=== PATIENT | male | born 1950 | race Caucasian/White ===

== ENCOUNTER 2017-04-16 05:57 | Day surgery (SDC) | payer OTHER ==
[~2017-04-16] VITALS: Ht 167.6 cm; Wt 65.9 kg
[~2017-04-16 05:57] MED LIST: ACETAMINOPHEN 325 MG TABLET PO PRN; ASPI-556 PO; CYCLOPENTOLATE HCL 2% 2 ML OPHTHALMIC SOLUTION OD SCH; DICLOFENAC SODIUM 0.1% 2.5 ML OPHTHALMIC SOLUTION OD SCH; DOCU100C34 PO; FOLI1TAB15 PO; IBUP-2070 PO; METO-558 PO; MOXIFLOXACIN HCL 0.5% 3 ML OPHTHALMIC SOLUTION OD SCH; MULT-1238 PO; OLAN5TAB2 PO; OLAN7.5T2 PO; OXYB5XL PO; PALI3 PO; PANT40TA25 PO; PHENYLEPHRINE HCL 2.5% 2 ML OPHTHALMIC SOLUTION OD SCH; RINGERS SOLUTION,LACTATED 500 ML IV ONE; TETRACAINE HCL/PF 0.5% 4 ML OPHTHALMIC SOLUTION OD SCH; TRAM50TA4 PO; VITAD400 PO
[2017-04-16] MEDS ORDERED: RINGERS SOLUTION,LACTATED 500 ML IV ONE ×2 (06:00→06:06)
[2017-04-16] MEDS ORDERED: MOXIFLOXACIN HCL 0.5% 3 ML OPHTHALMIC SOLUTION ONE (06:07)
[2017-04-16] MEDS ORDERED: DICLOFENAC SODIUM 0.1% 2.5 ML OPHTHALMIC SOLUTION ONE (06:07)
[2017-04-16] MEDS ORDERED: PHENYLEPHRINE HCL 2.5% 2 ML OPHTHALMIC SOLUTION ONE (06:08)
[2017-04-16] MEDS ORDERED: TETRACAINE HCL/PF 0.5% 4 ML OPHTHALMIC SOLUTION ONE (06:08)
[2017-04-16] MEDS ORDERED: CYCLOPENTOLATE HCL 2% 2 ML OPHTHALMIC SOLUTION ONE (06:08)
[2017-04-16] MEDS: CYCLOPENTOLATE HCL 2% 2 ML OPHTHALMIC SOLUTION OD SCH ×3 (06:51→07:03)
[2017-04-16] MEDS: TETRACAINE HCL/PF 0.5% 4 ML OPHTHALMIC SOLUTION OD SCH ×3 (06:52→07:02)
[2017-04-16] MEDS: PHENYLEPHRINE HCL 2.5% 2 ML OPHTHALMIC SOLUTION OD SCH ×3 (06:52→07:03)
[2017-04-16] MEDS: DICLOFENAC SODIUM 0.1% 2.5 ML OPHTHALMIC SOLUTION OD SCH ×3 (06:52→07:03)
[2017-04-16] MEDS: MOXIFLOXACIN HCL 0.5% 3 ML OPHTHALMIC SOLUTION OD SCH ×3 (06:52→07:03)
[2017-04-16] MEDS ORDERED: ACETAMINOPHEN 325 MG TABLET PO PRN (08:00)
[2017-04-16] MEDS ORDERED: MIDAZOLAM HCL 2 MG/2 ML VIAL IVP ONE (12:00)
[2017-04-16] MEDS ORDERED: FentaNYL CITRATE-PF 100 MCG/2 ML VIAL IVP ONE (12:00)
[2017-04-16] MEDS ORDERED: EPINEPHrine 1:1,000 [1 MG/ML] AMP ONE (15:58)
[2017-04-16] MEDS ORDERED: HYALURONATE SODIUM 12 MG/ML 0.8 ML SYRINGE IO ONE (15:58)
[2017-04-16] MEDS ORDERED: POVIDONE-IODINE 10% 15 ML SOLUTION UD ONE (15:58)
[2017-04-16] MEDS ORDERED: HYALURONATE SOD/CHONDROITIN SOD 0.5 ML VIAL IO ONE (15:58)
== END 2017-04-16 09:15 | disposition home or self-care (01) ==
LOC: SURGERY 05:57
PROVIDERS: ATTEND Ophthalmology
DX: H25.11 Age-related nuclear cataract, right eye (principal); H40.9 Unspecified glaucoma; J45.909 Unspecified asthma, uncomplicated; G35 Multiple sclerosis; F20.0 Paranoid schizophrenia; F32.9 Major depressive disorder, single episode, unspecified; Z72.89 Other problems related to lifestyle; Z86.73 Personal history of transient ischemic attack (TIA), and cerebral infarction without residual deficits
CPT/HCPCS: 66984; 93005; C1780; J2250; J3010; J7120; J0171; J3490

== ENCOUNTER 2017-10-08 06:02 | Day surgery (SDC) | payer OTHER ==
[~2017-10-08] VITALS: Ht 167.6 cm; Wt 65.9 kg
[~2017-10-08 06:02] MED LIST changes: -ACETAMINOPHEN 325 MG TABLET PO PRN; -CYCLOPENTOLATE HCL 2% 2 ML OPHTHALMIC SOLUTION OD SCH; -DICLOFENAC SODIUM 0.1% 2.5 ML OPHTHALMIC SOLUTION OD SCH; -MOXIFLOXACIN HCL 0.5% 3 ML OPHTHALMIC SOLUTION OD SCH; -PHENYLEPHRINE HCL 2.5% 2 ML OPHTHALMIC SOLUTION OD SCH; -RINGERS SOLUTION,LACTATED 500 ML IV ONE; -TETRACAINE HCL/PF 0.5% 4 ML OPHTHALMIC SOLUTION OD SCH
[2017-10-08] MEDS ORDERED: LIDOCAINE HCL/PF 1% 2 ML VIAL IM ONE (06:03)
[2017-10-08] MEDS ORDERED: NEOMYCIN/POLYMYXIN B/DEXAMETH 3.5 GM OPHTHALMIC OINTMENT OD ONE (06:03)
[2017-10-08] MEDS ORDERED: EPINEPHrine 1:1,000 [1 MG/ML] AMP IM ONE (06:03)
[2017-10-08] MEDS ORDERED: TETRACAINE HCL VISCOUS 0.5% 0.6 ML OPHTHALMIC SOLUTION OD ONE (06:03)
[2017-10-08] MEDS ORDERED: POVIDONE-IODINE 10% 15 ML SOLUTION UD TP ONE (06:03)
[2017-10-08] MEDS ORDERED: HYALURONATE SOD/CHONDROITIN SOD 0.5 ML VIAL IO ONE (06:03)
[2017-10-08] MEDS ORDERED: MIDAZOLAM HCL 2 MG/2 ML VIAL IVP ONE (06:03)
[2017-10-08] MEDS ORDERED: FentaNYL CITRATE-PF 100 MCG/2 ML VIAL IVP ONE (06:03)
[2017-10-08] MEDS ORDERED: RINGERS SOLUTION,LACTATED 500 ML IV ONE ×2 (06:13→06:30)
[2017-10-08] MEDS ORDERED: PHENYLEPHRINE HCL 2.5% 2 ML OPHTHALMIC SOLUTION ONE (06:14)
[2017-10-08] MEDS ORDERED: TETRACAINE HCL/PF 0.5% 4 ML OPHTHALMIC SOLUTION ONE (06:14)
[2017-10-08] MEDS ORDERED: CYCLOPENTOLATE HCL 2% 2 ML OPHTHALMIC SOLUTION ONE (06:14)
[2017-10-08] MEDS ORDERED: MOXIFLOXACIN HCL 0.5% 3 ML OPHTHALMIC SOLUTION ONE (06:14)
[2017-10-08] MEDS ORDERED: ACETAMINOPHEN 325 MG TABLET PO PRN (06:30)
[2017-10-08] MEDS ORDERED: FLURBIPROFEN SODIUM 0.03% 2.5 ML OPHTHALMIC SOLUTION OS SCH (06:30)
[2017-10-08] MEDS ORDERED: DICLOFENAC SODIUM 0.1% 2.5 ML OPHTHALMIC SOLUTION OS SCH (06:30)
[2017-10-08] MEDS ORDERED: FLURBIPROFEN SODIUM 0.03% 2.5 ML OPHTHALMIC SOLUTION ONE (06:47)
[2017-10-08 06:57] LABS: GLUCOMETER DEV NAME(LOC) SDS 5; GLUCOSE,POINT OF CARE 103 MG/DL (70-110)
[2017-10-08] MEDS: MOXIFLOXACIN HCL 0.5% 3 ML OPHTHALMIC SOLUTION OS SCH ×3 (06:58→07:13)
[2017-10-08] MEDS: FLURBIPROFEN SODIUM 0.03% 2.5 ML OPHTHALMIC SOLUTION OS SCH ×3 (06:58→07:12)
[2017-10-08] MEDS: CYCLOPENTOLATE HCL 2% 2 ML OPHTHALMIC SOLUTION OS SCH ×3 (06:58→07:13)
[2017-10-08] MEDS: PHENYLEPHRINE HCL 2.5% 2 ML OPHTHALMIC SOLUTION OS SCH ×3 (06:58→07:13)
[2017-10-08] MEDS: TETRACAINE HCL/PF 0.5% 4 ML OPHTHALMIC SOLUTION OS SCH ×3 (06:58→07:12)
== END 2017-10-08 08:40 | disposition home or self-care (01) ==
LOC: SURGERY 06:02
PROVIDERS: ATTEND Ophthalmology
DX: H25.12 Age-related nuclear cataract, left eye (principal); J45.909 Unspecified asthma, uncomplicated; E66.9 Obesity, unspecified; G47.33 Obstructive sleep apnea (adult) (pediatric); I10 Essential (primary) hypertension; K21.9 Gastro-esophageal reflux disease without esophagitis; N40.0 Benign prostatic hyperplasia without lower urinary tract symptoms; F20.0 Paranoid schizophrenia; Z87.891 Personal history of nicotine dependence; Z72.89 Other problems related to lifestyle; Z68.23 Body mass index [BMI] 23.0-23.9, adult; Z86.73 Personal history of transient ischemic attack (TIA), and cerebral infarction without residual deficits; Z79.82 Long term (current) use of aspirin; Z79.1 Long term (current) use of non-steroidal anti-inflammatories (NSAID); Z79.891 Long term (current) use of opiate analgesic; Z98.41 Cataract extraction status, right eye; Z79.899 Other long term (current) drug therapy
CPT/HCPCS: 66982; 82962; 93005; C1780; J0171; J2250; J3010; J3490; J7120